=== PATIENT | male | born 1985 | race Caucasian/White ===

== ENCOUNTER 2017-07-29 21:31 | Emergency (ER) | payer OTHER ==
[~2017-07-29] VITALS: Ht 177.8 cm; Wt 72.3 kg
[2017-07-29 21:57] LABS: HEMATOCRIT 44.1 % (38.0-50.0); HEMOGLOBIN 15.3 G/DL (12.5-16.6); MCHC 34.7 G/DL (30.0-36.0); MCV 89.5 FL (86-99); PLATELET COUNT 243 K/uL (156-360); RBC DIS.WIDTH-CV 12.1 % (11.8-14.6); RBC DIS.WIDTH-SD 39.2 % (39-53); RED BLOOD COUNT 4.93 M/uL (4.00-5.50); WHITE BLOOD COUNT 10.7 K/uL (4.1-10.2)
[2017-07-29 22:08] LABS: ALBUMIN 4.6 g/dL (3.2-4.8); CHLORIDE 100 mEq/L (99-109); POTASSIUM 4.3 mEq/L (3.7-5.4); SODIUM 139 mEq/L (136-147)
[2017-07-29 22:10] LABS: GLUCOSE 124 mg/dL (70-99); TOTAL PROTEIN 7.5 g/dL (6.4-8.3)
[2017-07-29 22:12] LABS: TOTAL BILIRUBIN 0.8 mg/dL (0.0-1.0)
[2017-07-29 22:14] LABS: ALKALINE PHOSPHATASE 82 IU/L (3-129); CREATININE 1.2 mg/dL (0.6-1.3); GFR ESTIMATE (CALCULATED) > 59 mL/min/ (58.99-99999)
[2017-07-29 22:15] LABS: AST (GOT) 23 IU/L (2-34); UREA NITROGEN (BUN) 20 mg/dL (9-23)
[2017-07-29 22:17] LABS: ALT (GPT) 21 IU/L (3-49); LIPASE 7 U/L (1.0-51.0)
[2017-07-30 02:22] LABS: APPEARANCE SL.HAZY ((CLEAR)); BILIRUBIN NEGATIVE; BLOOD SMALL; COLOR YELLOW ((YELLOW)); GLUCOSE (STRIP) 50; KETONES 5; LEUKOCYTES NEGATIVE; NITRITE NEGATIVE; PROTEIN (STRIP) 30; SPECIFIC GRAVITY 1.029 (1.000-1.030); UROBILINOGEN 0.2 MG/DL (0.2-1.0)
[2017-07-30 03:02] LABS: BACTERIA RARE /HPF; CALCIUM OXALATE CRYSTALS 1+ /HPF; EPITHELIAL CELLS RARE /HPF; MUCUS 3+ /LPF; RED BLOOD CELLS TNTC /HPF (0-5); UCUL ADDED? YES; WHITE BLOOD CELLS 0-5 /HPF (0-5)
[2017-07-30] MEDS ORDERED: BENTYL10 MG PO (03:07)
[2017-07-30 03:11] VITALS: BP 112/55
== END 2017-07-30 03:15 | disposition home or self-care (01) ==
LOC: EME 21:31
DX: R10.9 Unspecified abdominal pain (principal); R31.9 Hematuria, unspecified; E11.9 Type 2 diabetes mellitus without complications
CPT/HCPCS: 80053; 81003; 83690; 85027; 87086; 99281; 99284